=== PATIENT | female | born 1970 | race Two or more races ===

== ENCOUNTER 2018-11-05 10:37 | Inpatient (IN) | payer MEDICAID ==
[~2018-11-05] VITALS: Ht 154.9 cm; Wt 50.8 kg
[2018-11-05 12:28] VITALS: BP 112/75
[2018-11-05] MEDS ORDERED: CLON1TAB11 PO (13:07)
[2018-11-05] MEDS ORDERED: OXYcodone/APAP 5/325MG TABLET PO PRN (14:00)
[2018-11-05] MEDS ORDERED: ONDANSETRON 2MG/ML, 2ML IVPush PRN (14:00)
[2018-11-05] MEDS ORDERED: PLEASE ENTER ALLERGIES MC SCH (14:30)
[2018-11-05] MEDS: D5%-0.45NACL+KCL 20MEQ 1,000 ML IV SCH ×2 (18:38→23:58)
[2018-11-05] MEDS ORDERED: MAGNESIUM HYDROXIDE 8%, 30ML UDC PO PRN (19:30)
[2018-11-05 19:41] VITALS: BP 120/78
[2018-11-06 01:52] VITALS: BP 108/68
[2018-11-06 04:55] LABS: BASOPHILS # (AUTO) 0.03 x10^3/uL (0-0.1); BASOPHILS % (AUTO) 0 % (0-1); EOSINOPHILS # (AUTO) 0.16 x10^3/uL (0-0.4); EOSINOPHILS % (AUTO) 3 % (1-7); LYMPHOCYTES # (AUTO) 1.38 x10^3/uL (1-3.4); LYMPHOCYTES % (AUTO) 23 % (22-44); MD NO; MEAN CORPUSCULAR HEMOGLOBIN 29.8 pg (27.0-34.8); MEAN CORPUSCULAR HGB CONC 33.8 g/dL (32.4-35.8); MEAN CORPUSCULAR VOLUME 88.1 fL (80-100); MEAN PLATELET VOLUME 6.9 fL (7.4-10.4); MONOCYTES # (AUTO) 0.33 x10^3/uL (0.2-0.8); MONOCYTES % (AUTO) 6 % (2-9); NEUTROPHILS # (AUTO) 4.24 x10^3/uL (1.8-6.8); NEUTROPHILS % (AUTO) 69 % (42-75); PLATELET COUNT 199 x10^3/uL (130-400); RED BLOOD COUNT 3.44 x10^6/uL (3.82-5.3); RED CELL DISTRIBUTION WIDTH 13.9 % (9.6-15.2)
[2018-11-06 05:08] LABS: ANION GAP 6 mmol/L (5-15); CALCIUM 8.6 mg/dL (8.5-10.1); CHLORIDE 106 mmol/L (98-107); CREATININE 0.44 mg/dL (0.55-1.02)
[2018-11-06 07:18] VITALS: BP 100/70
[2018-11-06 13:57] VITALS: BP 114/76
[2018-11-06] MEDS: D5%-0.45NACL+KCL 20MEQ 1,000 ML IV SCH (14:00)
== END 2018-11-06 18:21 | disposition home or self-care (01) | DRG 754 ==
LOC: 3NW 12:06
PROVIDERS: ADMIT Specialist; ATTEND Specialist
DX: C56.1 Malignant neoplasm of right ovary (principal); E43 Unspecified severe protein-calorie malnutrition; C78.6 Secondary malignant neoplasm of retroperitoneum and peritoneum; K59.00 Constipation, unspecified; Z80.49 Family history of malignant neoplasm of other genital organs; Z82.49 Family history of ischemic heart disease and other diseases of the circulatory system; Z83.3 Family history of diabetes mellitus; Z90.710 Acquired absence of both cervix and uterus; Z86.718 Personal history of other venous thrombosis and embolism; Z90.721 Acquired absence of ovaries, unilateral; D63.0 Anemia in neoplastic disease; F32.9 Major depressive disorder, single episode, unspecified; F41.9 Anxiety disorder, unspecified; Z68.21 Body mass index [BMI] 21.0-21.9, adult
CPT/HCPCS: 36415; 80048; 85025; G0378; J3480